=== PATIENT | female | born 1975 | race Caucasian/White ===

== ENCOUNTER 2023-08-29 08:00 | Outpatient (CLI) | payer OTHER ==
[2023-08-29 12:37] LABS: BASOPHILS # (AUTO) 0.1 10^3/uL (0.0-0.1); BASOPHILS % (AUTO) 0.6 %; EOSINOPHILS # (AUTO) 0.1 10^3/uL (0.0-0.7); HCT - HEMATOCRIT 32.8 % (37.0-47.0); HGB - HEMOGLOBIN 10.2 g/dL (12.0-16.0); LYMPHOCYTES % (AUTO) 23.3 %; MEAN CORPUSCULAR HEMOGLOBIN 28.4 pg (27.0-31.0); MEAN CORPUSCULAR HGB CONC 31.1 g/dL (32.0-36.0); MEAN CORPUSCULAR VOLUME 91.4 fL (81.0-99.0); MEAN PLATELET VOLUME 11.6 fL (7.9-10.8); MONOCYTES # (AUTO) 0.5 10^3/uL (0.0-1.0); MONOCYTES % (AUTO) 6.3 %; NEUTROPHILS # (AUTO) 5.7 10^3/uL (1.5-6.6); NEUTROPHILS % (AUTO) 68.3 %; PLT - PLATELET COUNT 290 10^3/uL (130-450); RED BLOOD COUNT 3.59 10^6/uL (4.20-5.40); WHITE BLOOD COUNT 8.4 x10^3/uL (4.8-10.8)
[2023-08-29 12:49] LABS: ALBUMIN 4.5 g/dL (3.2-5.5); ALBUMIN/GLOBULIN RATIO 1.8 (1.0-2.2); BILIRUBIN,TOTAL 0.8 mg/dL (0.2-1.0); CALCIUM 9.5 mg/dL (8.5-10.3); CREATININE 0.6 mg/dL (0.6-1.3); MAGNESIUM 1.9 mg/dL (1.7-2.3); POTASSIUM 4.3 mmol/L (3.5-4.5)
[2023-08-29 13:01] LABS: THYROID STIMULATING HORMONE 1.71 uIU/mL (0.34-5.60)
[2023-08-29 13:08] LABS: FERRITIN 3.7 ng/mL (11.0-306.8)
== END 2023-08-29 23:59 | disposition home or self-care (01) ==
LOC: LAB.N 08:00
PROVIDERS: ATTEND Family Medicine
DX: D64.9 Anemia, unspecified (principal); R53.83 Other fatigue; Z98.84 Bariatric surgery status
CPT/HCPCS: 36415; 80053; 82607; 82728; 82746; 83540; 83735; 84443; 84466; 84630; 85025

== ENCOUNTER 2024-01-27 07:42 | Outpatient (CLI) | payer OTHER ==
--- NOTE | 2024-01-28 08:08 | Ultrasound Report ---
LIMITED ULTRASOUND OF LEFT BREAST: 01/27/2024 CLINICAL: Patient returns today to evaluate a focal asymmetry in the left breast. Comparison is made to exams dated: 01/27/2024 mammogram - [facility], 01/07/2024 mamm ogram, 10/23/2018 mammogram, 10/23/2018 ultrasound, 10/25/2015 ultrasound, and 10/25/2015 mammogram - [facility]. Color flow and real-time ultrasound of the left breast 1-5 o'clock region were performed. Roberts scal e images of the real-time examination were reviewed. There is a benign 1.2 cm simple cyst in the left breast at 4 o'clock, 2 cm from the nipple. This cor relates with mammography findings. IMPRESSION: BENIGN Left breast 1.2 cm simple cyst at 4 o'clock is benign. No mammographic or sonographic evidence of mal ignancy. A 1 year screening mammogram is recommended. Findings and recommendations were conveyed to the patient during today's evaluation. This exam was interpreted at Station ID: [id number]. Electronically Signed By: Evelia Restrepo M.D., Ph.D. eb/:01/27/2024 08:56:12 Ultrasound BI-RADS: 2 Benign BI-RADS CATEGORY: (2) - 2 RECOMMENDATION: (ANNUAL) - Recommend routine annual screening mammography. [id number] 1 year screening LATERALITY: (B)
--- NOTE | 2024-01-28 08:08 | Mammography Report ---
UNILATERAL LEFT DIGITAL DIAGNOSTIC MAMMOGRAM 3D/2D WITH SPOT COMPRESSION WITH AUGMENTATION: 01/27/2024 CLINICAL: Patient returns for additional imaging over a suspected mass in the left breast. Comparison is made to exams dated: 01/07/2024 mammogram, 10/23/2018 mammogram, and 10/25/2015 mammogram - [facility]. The left breast is extremely dense, which lowers the sensitivity of mammography (category d />75% gla ndular tissue). There is a 1.2 cm oval mass with a circumscribed margin in the left breast at 4 o'clock anterior dept h. The previously described possible mass in the inner anterior depth on outside screening mammogram is not seen on current exam and is consistent with superimposition of normal breast tissue. No other significant masses or calcifications are seen in the breast. IMPRESSION: INCOMPLETE: NEEDS ADDITIONAL IMAGING EVALUATION Left breast 1.2 cm oval mass in the lower outer quadrant at 4 o'clock anterior depth. An ultrasound i s recommended for further evaluation and is scheduled to immediately follow this examination. Based on Tyrer-Cuzick model (a risk assessment model), the patient's lifetime risk is 31.7% and her 1 0 year risk is 7.1%. If a patient has an elevated risk, a more comprehensive evaluation should be con sidered and/or a referral to a genetic counselor. The [place] [employer], [place] [employer], and NCCN Guidelines advise the consideration of Breast MRI as an adjunct to screening mammog roxanne in patients whose "Lifetime risk to develop breast cancer" is 20% or higher. This exam was interpreted at Station ID: [id number]. NOTE: For mammograms, a report in lay terms will be sent to the patient. Approximately 15% of breast malignancies will not be visualized mammographically. In the management of a palpable breast mass, a negative mammogram must not discourage biopsy of a clinically suspicious lesion. Electronically Signed By: Evelia Restrepo M.D., Ph.D. eb/:01/27/2024 08:54:44 ACR BI-RADS Category 0: Incomplete 3340F PARENCHYMAL PATTERN: (VD) - The breast(s) demonstrate(s) extremely dense parenchyma, limiting the sen sitivity of mammography. BI-RADS CATEGORY: (0) - 0 Ultrasound [id number] Immediate follow-up LATERALITY: (B)
== END 2024-01-27 07:43 | disposition home or self-care (01) ==
LOC: DI 07:42
PROVIDERS: ATTEND Family Medicine
DX: N60.02 Solitary cyst of left breast (principal)